=== PATIENT | male | born 1975 | race Caucasian/White ===

== ENCOUNTER 2019-06-19 06:17 | Day surgery (SDC) | payer OTHER ==
[~2019-06-19 06:17] MED LIST: Buffered Lidocaine 1% SYRIN* 1 ML/SYRINGE INTRADERM ONE; Famotidine IV* 10 MG/ML 2 ML (20 mg) IV ONE; Lactated Ringers 1000 ML Bag* 1,000 ML IV SCH
[2019-06-19] MEDS ORDERED: ceFAZolin 2 GM PREMIX in ORs 2 GM/50 ML BAG ONE (06:33)
[2019-06-19] MEDS ORDERED: Famotidine IV* 10 MG/ML 2 ML (20 mg) ONE (06:33)
[2019-06-19] MEDS ORDERED: ROPIVACAINE 5 MG/ML 30 ML BTL (0.5%) ONE (07:24)
[2019-06-19] MEDS ORDERED: Lidocaine 1% MPF ** 5 ML VIAL ONE (07:25)
[2019-06-19] MEDS ORDERED: Midazolam* 1 MG/ML 5 ML VIAL (5 MG) ONE (07:28)
[2019-06-19] MEDS ORDERED: fentaNYL* 50 MCG/ML 2 ML VIAL (100 MCG VIAL) ONE (07:41)
[2019-06-19] MEDS ORDERED: KETAMINE HCL* 50 MG/ML 10 ML VIAL ONE (07:57)
[2019-06-19] MEDS ORDERED: Ropivacaine 0.2% * 2 MG/ML VIAL ONE (08:20)
[2019-06-19] MEDS ORDERED: DiMENhydriNATE IV* 50 MG/ML VIAL ONE (08:39)
[2019-06-19] MEDS ORDERED: Succinylcholine* 20 MG/ML 10 ML VIAL ONE (08:40)
[2019-06-19] MEDS ORDERED: Propofol* 10 MG/ML 20 ML BTL ONE (08:40)
[2019-06-19] MEDS ORDERED: Ketorolac INJ* 30 MG/ML 1 ML VIAL ONE (08:40)
[2019-06-19] MEDS ORDERED: DiMENhydriNATE IV* 50 MG/ML VIAL IV PUSH PRN (09:15)
[2019-06-19] MEDS ORDERED: Naloxone* 0.4 MG/ML 1 ML VIAL IV PRN (09:15)
[2019-06-19] MEDS ORDERED: Acetaminophen TAB* 325 MG PO PRN (09:15)
[2019-06-19] MEDS ORDERED: oxyCODONE TAB* 5 MG TAB PO PRN (09:15)
[2019-06-19 10:24] VITALS: BP 115/72
--- NOTE | 2019-06-19 11:15 | OP ---
CC: PCP OPERATIVE REPORT: DATE OF OPERATION: 06/19/19 DATE OF : 79 SURGEON: Marilee Vidal MD BAR POINTER: NGA Flowers An seismic survey assistant was needed for the entirety of the case to help with positioning, retraction, and was ut ilized throughout all portions of the case. ANESTHESIOLOGIST: Dr. Dick. ANESTHESIA: General interscalene block. PRE-OP DIAGNOSIS: Right shoulder partial thickness tear of the rotator cuff with possible superior l abral tear from anterior to posterior tear. POST-OP DIAGNOSIS: Right shoulder partial thickness tear of the rotator cuff with possible superior labral tear from anterior to posterior tear. OPERATIVE PROCEDURE: Right shoulder arthroscopy with: 1. Extensive glenohumeral debridement including debridement of anterior, posterior, superior labrum. 2. Subacromial decompression with acromioplasty. 3. Rotator cuff repair using REGENETEN patch. 4. Subpectoral biceps tenodesis. INDICATIONS: Al is a 44-year-old male who has had persistent shoulder pain for over 6 to 7 years . He has had a history of a torn labrum since 2011, treated conservatively. He had a history of ost eochondroma at age 19. He had a partial thickness tear of the rotator cuff and he has been strugglin g for 5 to 6 months. He has failed conservative management and elected to proceed with surgical treat ment. Risks and benefits include but not limited to bleeding; infection; damage to nerves, vessels, surrounding structures; wound nonhealing; persistent pain; need for further surgery; scar; stiffness; incomplete relief of symptoms; and risk of anesthesia. COMPLICATIONS: None. ESTIMATED BLOOD LOSS: Minimal. IMPLANTS USED: One size large REGENETEN patch and one Q-Fix 2.8 mm. DESCRIPTION OF PROCEDURE: The patient was greeted in the preoperative area by the attending surgeon. Correct extremity was marked and consent was confirmed. The patient underwent interscalene nerve b lock by the anesthesiologist, after which he was brought back to the operating suite where he was jane austin in a supine position on the operating table. He then underwent general anesthesia and endotrache al intubation after which he was placed in left lateral decubitus position with all bony prominences padded. He was secured with peg board. The right arm was draped unsterile with 10 pounds of tractio n. The right shoulder was then prepped and draped in the usual sterile fashion beginning with chlorh exidine soap, scrub, and alcohol wipe and a final prep with ChloraPrep. After appropriate surgical pause indicating site, side, procedure, and administration of antibiotics, the standard posterolateral portal was made sharply with an 11 blade. The scope was introduced into the joint. Joint was examined. There were grade 0 and 1 changes of glenohumeral joint. There was a bundant synovitis that was present. There was obvious SLAP II type tear with a lot of erythema on th e undersurface of the biceps. The subscap was intact, but there was a high grade partial thickness t earing of the supraspinatus. The biceps were then tenotomized for later tenodesis. There was obviou s tendinopathy as well. Shaver was used to debride back the undersurface of the supraspinatus. The anterior, posterior, superior labrum were then debrided back of any unstable flaps. The inferior rec ess was intact. Once the intraarticular work was completed, attention was directed to the subacromia l space. The scope was positioned in the subacromial space. The lateral portal was made in an outside-in [facility] ion. Shaver was used to debride back the abundant bursa that was present. Once this was debrided, t he undersurface of the acromion was skeletonized using the electrocautery device. The ligament was r eleased. The anterolateral spur was identified that was quite moderate. The 4.0 oval bur was then u sed to do an acromioplasty. Once the spur was removed, the cuff was examined. There was no evidence of tearing on the bursal side. All excess debris was removed, and because of the patient's partial thickness tendon tearing on the undersurface, decision was made to treat this with REGENETEN patch. The size large REGENETEN patch was brought to the field and placed under arthroscopic visualization. Once it was placed through 2 separate stab incisions, tendon yamila were then used to secure the te ndon medially and then laterally PEEK yamila were used. This was well secured. Final images were o btained. The wounds were copiously irrigated with sterile saline. Attention directed to biceps. The bed was airplaned to the right side. The anterior aspect of the shoulder was prepped again using ChloraPrep. A 15 blade was used to make an incision in line with the biceps tendon. The soft tissu e was carefully dissected to expose the pec. The pec was elevated and the biceps was palpated. Then, the dissection was done bluntly, the biceps was brought through the wound and found to have abundant synovitis. The groove was then prepared in usual fashion with electrocautery device, red ball rasp and osteotome. Then, a Q-Fix was then deployed, the drill was then deployed with excellent purchase. The sutures were then passed in a Demarcus- Javier type configuration 1 cm proximal to the musculotendi nous junction and the excess stump was excised, biceps was secured and shuttled back into the wound a nd secured. The wounds were then copiously irrigated with sterile saline. The anterior wound was cl osed in layers with 3-0 Monocryl and then subcutaneous in running fashion. The portals were closed w ith 3-0 nylon. Sterile dressings were applied. The Cryo/Cuff and UltraSling were applied. He was t hen awoken from anesthesia and transferred to the PACU in stable condition. POSTOPERATIVE PLAN: He will be nonweightbearing in a sling for 3 weeks, discharged on pain medicatio n. DVT prophylaxis was considered, but deferred due to no previous personal or family history. I wi ll see the patient back in 10 to 14 days. [id number]/[facility] #: [id number]
== END 2019-06-19 10:50 | disposition home or self-care (01) ==
LOC: OREAST 06:17
PROVIDERS: ATTEND Orthopaedic Surgery
DX: S46.011A Strain of muscle(s) and tendon(s) of the rotator cuff of right shoulder, initial encounter (principal); S43.431A Superior glenoid labrum lesion of right shoulder, initial encounter; M75.21 Bicipital tendinitis, right shoulder; G89.18 Other acute postprocedural pain; J45.909 Unspecified asthma, uncomplicated; K21.9 Gastro-esophageal reflux disease without esophagitis; X58.XXXA Exposure to other specified factors, initial encounter; Y92.9 Unspecified place or not applicable
CPT/HCPCS: C1713; C1776; J0330; J0690; J1240; J1885; J2250; J2704; J2795; J3010